=== PATIENT | male | born 1950 | race Caucasian/White ===

== ENCOUNTER 2018-10-06 07:05 | Day surgery (SDC) | payer MEDICARE, MEDICAID ==
[2018-10-02 09:01] LABS: BASOPHILS # (AUTO) 0.1 X10'3 (0-0.2); BASOPHILS % (AUTO) 0.7 % (0-1); EOSINOPHILS # (AUTO) 0.2 X10'3 (0-0.9); EOSINOPHILS % (AUTO) 2.2 % (0-6); HEMATOCRIT 35.4 % (42.0-52.0); HEMOGLOBIN 12.3 g/dl (14.0-17.9); LYMPHOCYTES # (AUTO) 3.5 X10'3 (1.1-4.8); LYMPHOCYTES % (AUTO) 34.8 % (21-51); MEAN CORPUSCULAR HEMOGLOBIN 36.7 PG (27.0-31.0); MEAN CORPUSCULAR HGB CONC 34.8 g/dL (33.0-36.5); MEAN CORPUSCULAR VOLUME 105.5 FL (78-98); MEAN PLATELET VOLUME 8.1 FL (7.4-10.4); MONOCYTES # (AUTO) 0.6 X10'3 (0-0.9); NEUTROPHILS # (AUTO) 5.7 X10'3 (1.8-7.7); NEUTROPHILS % (AUTO) 56.3 % (42-75); PLATELET COUNT 244 X10'3 (140-440); RED BLOOD COUNT 3.36 X10'6 (4.70-6.10); RED CELL DISTRIBUTION WIDTH 14.5 % (11.5-14.5); WHITE BLOOD COUNT 10.2 X10'3 (4.5-11.0)
[2018-10-02 09:14] LABS: ALBUMIN 3.4 G/DL (3.4-5.0); ANION GAP 10 (8-16); BLOOD UREA NITROGEN 50 MG/DL (7-18); BUN/CREATININE RATIO 8.1 (5.4-32.0); CALCIUM 9.1 MG/DL (8.5-10.1); CHLORIDE 99 MMOL/L (99-107); CREATININE 6.19 MG/DL (0.60-1.10); GLUCOSE 130 MG/DL (70-104); POTASSIUM 3.6 MMOL/L (3.5-5.1); SODIUM 139 MMOL/L (135-145); TOTAL CARBON DIOXIDE 30.5 MMOL/L (24-32); eGFR 9 ML/MIN
[2018-10-02 09:24] LABS: PARTIAL THROMBOPLASTIN TIME 34 SECONDS (22-32)
[2018-10-06] VITALS (8 sets, daily range): BP systolic 134–150; BP diastolic 65–85
[~2018-10-06] VITALS: Ht 180.3 cm; Wt 112.2 kg
[~2018-10-06 07:05] MED LIST: ASPI-1 PO; DIO80T PO; ENOX60DI10 SQ; FOLI0.8T7 PO; FOLI1TAB16 PO; FURO80TA87 PO; LINA5TAB4 PO; METO100T7 PO; PANT20TA3 PO; PRAV20TA PO; SYN0.088T PO; WARF1TAB PO
[2018-10-06] MEDS ORDERED: LORazepam 0.5 MG tablet PO PRN (07:30)
[2018-10-06] MEDS ORDERED: normal saline 1,000 ML IV SCH (07:30)
[2018-10-06] MEDS ORDERED: diphenhydrAMINE 25mg capsule PO PRN (07:30)
[2018-10-06] MEDS ORDERED: ASPI-1130 PO (08:27)
[2018-10-06] MEDS ORDERED: HYDR-4353 PO (08:27)
[2018-10-06] MEDS ORDERED: LOSA100T57 PO (08:27)
[2018-10-06] MEDS ORDERED: OMEP20TA5 PO (08:27)
[2018-10-06] MEDS ORDERED: LEVO50TA8 PO (08:27)
[2018-10-06] MEDS ORDERED: PANT-47 PO (08:27)
[2018-10-06] MEDS ORDERED: fentaNYL/PF 50MCG/1 ML 2ML syringe ONE (10:12)
[2018-10-06] MEDS ORDERED: iohexol 350MG/ML 100ml bottle IV ONE (10:12)
[2018-10-06] MEDS ORDERED: midazolam 2 mg/2 ml injection ONE (10:12)
[2018-10-06] MEDS ORDERED: heparin 1,000 UNITS/NS 500ml 500 ML ONE ×2 (10:12)
[2018-10-06] MEDS ORDERED: LIDOcaine 1% (10mg/ml)w/preservative injection 20ml MDV ONE (10:12)
== END 2018-10-06 13:47 | disposition home or self-care (01) ==
LOC: SSTAY O 07:05
PROVIDERS: ATTEND Internal Medicine Interventional Cardiology
DX: Z01.818 Encounter for other preprocedural examination (principal); I25.10 Atherosclerotic heart disease of native coronary artery without angina pectoris; E78.5 Hyperlipidemia, unspecified; J45.909 Unspecified asthma, uncomplicated; E11.22 Type 2 diabetes mellitus with diabetic chronic kidney disease; I12.9 Hypertensive chronic kidney disease with stage 1 through stage 4 chronic kidney disease, or unspecified chronic kidney disease; N18.9 Chronic kidney disease, unspecified; E66.9 Obesity, unspecified; Z68.34 Body mass index [BMI] 34.0-34.9, adult; Z79.899 Other long term (current) drug therapy; Z79.82 Long term (current) use of aspirin; Z79.01 Long term (current) use of anticoagulants
CPT/HCPCS: 36415; 80048; 82948; 85025; 85610; 85730; 93005; 93458; 99152; 99153; C1769; J1644; J2001; J2250; J3010; J7030; Q0163; Q9967; A4620; A6258; C1729; C1760

== ENCOUNTER 2019-03-22 06:29 | Day surgery (SDC) | payer MEDICARE, MEDICAID ==
[~2019-03-22] VITALS: Ht 180.3 cm; Wt 111.3 kg
[2019-03-22] VITALS (11 sets, daily range): BP systolic 113–129; BP diastolic 52–66
[~2019-03-22 06:29] MED LIST changes: -ASPI-1 PO; +ASPI-1130 PO; -ENOX60DI10 SQ; +HYDR-4353 PO; +LEVO50TA8 PO; +LOSA100T57 PO; +OMEP20TA5 PO; +PANT-47 PO; -PANT20TA3 PO; -SYN0.088T PO
[2019-03-22] MEDS ORDERED: normal saline 1000ml 1,000 ML IV PRN (06:50)
[2019-03-22] MEDS ORDERED: COU4T PO (07:02)
[2019-03-22] MEDS ORDERED: COU1T PO (07:02)
[2019-03-22 07:36] LABS: BASOPHILS # (AUTO) 0.1 X10'3 (0-0.2); BASOPHILS % (AUTO) 0.9 % (0-1); EOSINOPHILS # (AUTO) 0.5 X10'3 (0-0.9); EOSINOPHILS % (AUTO) 5.2 % (0-6); HEMATOCRIT 29.9 % (42.0-52.0); HEMOGLOBIN 10.6 g/dl (14.0-17.9); LYMPHOCYTES # (AUTO) 1.9 X10'3 (1.1-4.8); LYMPHOCYTES % (AUTO) 21.7 % (21-51); MEAN CORPUSCULAR HEMOGLOBIN 36.5 PG (27.0-31.0); MEAN CORPUSCULAR HGB CONC 35.5 g/dL (33.0-36.5); MEAN CORPUSCULAR VOLUME 102.9 FL (78-98); MEAN PLATELET VOLUME 8.1 FL (7.4-10.4); MONOCYTES # (AUTO) 0.7 X10'3 (0-0.9); MONOCYTES % (AUTO) 7.4 % (2-12); NEUTROPHILS # (AUTO) 5.7 X10'3 (1.8-7.7); NEUTROPHILS % (AUTO) 64.8 % (42-75); PLATELET COUNT 212 X10'3 (140-440); RED BLOOD COUNT 2.91 X10'6 (4.70-6.10); RED CELL DISTRIBUTION WIDTH 13.4 % (11.5-14.5); WHITE BLOOD COUNT 8.8 X10'3 (4.5-11.0)
[2019-03-22 07:46] LABS: ALBUMIN 3.2 G/DL (3.4-5.0); ANION GAP 10 (8-16); BLOOD UREA NITROGEN 59 MG/DL (7-18); CALCIUM 8.6 MG/DL (8.5-10.1); CHLORIDE 101 MMOL/L (99-107); CREATININE 7.36 MG/DL (0.60-1.10); GLUCOSE 120 MG/DL (70-104); POTASSIUM 3.5 MMOL/L (3.5-5.1); SODIUM 140 MMOL/L (135-145); TOTAL CARBON DIOXIDE 28.9 MMOL/L (24-32); eGFR 7 ML/MIN
[2019-03-22] MEDS ORDERED: tPA-cathflo 2 MG/2 ml IV flush ONE ×2 (08:06→09:38)
[2019-03-22] MEDS ORDERED: LIDOcaine 1%/PF 5ML 10 MG/ML VIAL ONE (08:27)
[2019-03-22] MEDS ORDERED: fentaNYL/PF 50MCG/1 ML 2ML syringe ONE ×6 (08:28→11:17)
[2019-03-22] MEDS ORDERED: heparin 1,000 UNITS/NS 500ml 500 ML ONE ×2 (08:28→10:35)
[2019-03-22] MEDS ORDERED: iohexol 300mg/ml 100ml inj. ONE (08:28)
[2019-03-22] MEDS ORDERED: midazolam 2 mg/2 ml injection ONE ×4 (08:28→11:16)
[2019-03-22] MEDS ORDERED: diphenhydrAMINE 50 mg/ml inj ONE (10:44)
[2019-03-22] MEDS ORDERED: heparin 1,000unit/ml 10ml vial 10 ML ONE (11:50)
[2019-03-22] MEDS ORDERED: HYDROmorphone 1 mg/ml syringe ONE (12:31)
[2019-03-22] MEDS ORDERED: HYDROmorphone 1 mg/ml syringe IV PRN (13:05)
== END 2019-03-22 16:30 | disposition home or self-care (01) ==
LOC: SSTAY O 06:29
PROVIDERS: ATTEND Radiology Vascular & Interventional Radiology
DX: T82.868A Thrombosis due to vascular prosthetic devices, implants and grafts, initial encounter (principal); Y83.2 Surgical operation with anastomosis, bypass or graft as the cause of abnormal reaction of the patient, or of later complication, without mention of misadventure at the time of the procedure; Y92.89 Other specified places as the place of occurrence of the external cause; I13.2 Hypertensive heart and chronic kidney disease with heart failure and with stage 5 chronic kidney disease, or end stage renal disease; N18.6 End stage renal disease; I50.9 Heart failure, unspecified; Z99.2 Dependence on renal dialysis; E03.9 Hypothyroidism, unspecified; J45.909 Unspecified asthma, uncomplicated; N05.1 Unspecified nephritic syndrome with focal and segmental glomerular lesions; E78.5 Hyperlipidemia, unspecified
CPT/HCPCS: 36415; 36558; 36904; 76937; 77001; 80048; 85025; 85610; C1750; C1769; C1894; J1170; J1200; J1644; J2997; J3010; J7030; Q9967; 99152; 99153; A6213; A9270; J2250

== ENCOUNTER 2019-05-25 08:42 | Day surgery (SDC) | payer MEDICARE, MEDICAID ==
[~2019-05-25] VITALS: Ht 180.3 cm; Wt 107.1 kg
[2019-05-25] VITALS (7 sets, daily range): BP systolic 117–157; BP diastolic 57–78
[~2019-05-25 08:42] MED LIST changes: +COU1T PO; +COU4T PO
--- NOTE | 2019-05-25 08:50 | NUR ---
Pt ambulated independently to unit; pt oriented to room, including call light use.
[2019-05-25] MEDS ORDERED: normal saline 1000ml 1,000 ML IV PRN (09:15)
[2019-05-25 09:57] LABS: ALBUMIN 3.6 G/DL (3.4-5.0); ANION GAP 11 (8-16); BLOOD UREA NITROGEN 68 MG/DL (7-18); BUN/CREATININE RATIO 9.9 (5.4-32.0); CHLORIDE 100 MMOL/L (99-107); CREATININE 6.87 MG/DL (0.60-1.10); GLUCOSE 124 MG/DL (70-104); POTASSIUM 3.6 MMOL/L (3.5-5.1); SODIUM 139 MMOL/L (135-145); TOTAL CARBON DIOXIDE 28.5 MMOL/L (24-32); eGFR 8 ML/MIN
[2019-05-25] MEDS ORDERED: LIDOcaine 1%/PF 5ML 10 MG/ML VIAL ONE (10:47)
[2019-05-25] MEDS ORDERED: midazolam 2 mg/2 ml injection ONE ×4 (10:47→11:34)
[2019-05-25] MEDS ORDERED: heparin 1,000 UNITS/NS 500ml 500 ML ONE (10:48)
[2019-05-25] MEDS ORDERED: fentaNYL/PF 50MCG/1 ML 2ML syringe ONE ×3 (10:48→11:36)
[2019-05-25] MEDS ORDERED: iohexol 300mg/ml 100ml inj. ONE (10:48)
--- NOTE | 2019-05-25 10:50 | NUR ---
Pt transported out of room via gurney to angio suite.
[2019-05-25] MEDS ORDERED: tPA-cathflo 2 MG/2 ml IV flush ONE (11:30)
--- NOTE | 2019-05-25 12:09 | NUR ---
Pt returned to room via gurney in no acute distress.
== END 2019-05-25 13:30 | disposition home or self-care (01) ==
LOC: SSTAY O 08:42
PROVIDERS: ATTEND Radiology Diagnostic Radiology
DX: T82.858A Stenosis of other vascular prosthetic devices, implants and grafts, initial encounter (principal); Y83.8 Other surgical procedures as the cause of abnormal reaction of the patient, or of later complication, without mention of misadventure at the time of the procedure; I13.2 Hypertensive heart and chronic kidney disease with heart failure and with stage 5 chronic kidney disease, or end stage renal disease; N18.6 End stage renal disease; I50.9 Heart failure, unspecified; J45.909 Unspecified asthma, uncomplicated; E03.9 Hypothyroidism, unspecified; E78.5 Hyperlipidemia, unspecified; Z91.018 Allergy to other foods; Z79.899 Other long term (current) drug therapy; Z82.49 Family history of ischemic heart disease and other diseases of the circulatory system; Z82.3 Family history of stroke
CPT/HCPCS: 36415; 36902; 76937; 80048; 82948; 85610; 99152; 99153; C1725; C1769; C1894; J1644; J2250; J2997; J3010; J7030; Q9967